=== PATIENT | female | born 1980 | race Two or more races ===

== ENCOUNTER 2025-01-17 08:50 | Outpatient (CLI) | payer OTHER | END 2025-01-17 09:02 | disposition home or self-care (01) | LOC: MAMO-SONO 08:50 | PROVIDERS: ATTEND Student in an Organized Health Care Education/Training Program | DX: N64.4 Mastodynia (principal); Z12.31 Encounter for screening mammogram for malignant neoplasm of breast; N84.0 Polyp of corpus uteri ==